=== PATIENT | female | born 2000 | race Caucasian/White ===

== ENCOUNTER 2021-08-16 15:53 | Emergency (ER) | payer MEDICAID, OTHER ==
[~2021-08-16] VITALS: Ht 170.2 cm; Wt 81.6 kg
[2021-08-16 15:54] VITALS: BP 127/71
[2021-08-16] MEDS ORDERED: PENICILLIN G BENZATHINE C-R 1.2 MU/2 ML SYR IM ONE (16:00)
[2021-08-16] MEDS ORDERED: PRED20TA5 PO (16:04)
[2021-08-16] MEDS ORDERED: IBUP-2213 PO (16:04)
[2021-08-16 16:39] VITALS: BP 127/71
--- NOTE | 2021-08-16 16:39 | NUR ---
Patient discharged with v/s stable. Written and verbal after care instructions given. Patient alert, oriented and verbalized understanding of instructions. Ambulatory with steady gait. All questions addressed prior to discharge. ID band removed. Patient advised to follow up with PMD. Rx of Ibuprofen and Prednisone given. Opportunity to ask questions provided and answered.
--- NOTE | 2021-08-16 16:49 | NUR ---
The patient's care was reviewed and supervised by Sherri Bullock RN.
== END 2021-08-16 16:39 | disposition home or self-care (01) ==
LOC: MED 15:53
DX: J02.9 Acute pharyngitis, unspecified (principal)
CPT/HCPCS: 96372; 99283; J0558

== ENCOUNTER 2021-10-25 04:25 | Emergency (ER) | payer OTHER ==
[~2021-10-25] VITALS: Ht 170.2 cm; Wt 83.5 kg
[~2021-10-25 04:25] MED LIST: IBUP-2213 PO; PRED20TA5 PO
--- NOTE | 2021-10-25 04:29 | NUR ---
ERMD examining patient in triage
[2021-10-25 04:30] VITALS: BP 125/73
[2021-10-25] MEDS ORDERED: cefTRIAXone 1,000 MG in LIDOCAINE MPF 1% 2.1 ML IM ONE (04:35)
--- NOTE | 2021-10-25 04:35 | NUR ---
PT AMBULATED TO BED
[2021-10-25] MEDS ORDERED: CEPH-588 PO (04:36)
[2021-10-25] MEDS ORDERED: NAPR-54 PO (04:36)
[2021-10-25] MEDS ORDERED: LIDOCAINE MPF 1% 5 ML ONE (04:40)
[2021-10-25] MEDS ORDERED: cefTRIAXone 1,000 MG VIAL ONE (04:40)
--- NOTE | 2021-10-25 04:55 | NUR ---
21 Y.O. F BIB SELF C/O allergic rx started last night on the right side of the face. NO SOB. CHEST PAIN, OR PAIN. A&OX4, VITALS WNL, SKIN INTACT AND STEADY GAIT. pmh: denies nka
--- NOTE | 2021-10-25 04:59 | NUR ---
Patient discharged with v/s stable. Written and verbal after care instructions given and explained. Patient alert, oriented and verbalized understanding of instructions. Ambulatory with steady gait. All questions addressed prior to discharge. ID band removed. Patient advised to follow up with PMD. Rx of KEFLEX AND NAPROXEN given. Patient educated on indication of medication including possible reaction and side effects. Opportunity to ask questions provided and answered.
[2021-10-25 05:00] VITALS: BP 125/73
== END 2021-10-25 04:43 | disposition home or self-care (01) ==
LOC: MED 04:25
DX: L03.211 Cellulitis of face (principal); Z79.899 Other long term (current) drug therapy
CPT/HCPCS: 96372; 99283; J0696; J2001

== ENCOUNTER 2021-10-28 05:28 | Emergency (ER) | payer SELFPAY ==
[~2021-10-28] VITALS: Ht 170.2 cm; Wt 81.6 kg
[~2021-10-28 05:28] MED LIST changes: +CEPH-588 PO; +NAPR-54 PO
[2021-10-28 05:30] VITALS: BP 124/76
--- NOTE | 2021-10-28 05:30 | NUR ---
to bed ambulatory
--- NOTE | 2021-10-28 06:18 | NUR ---
Dr. Mcfarland examining patient.
[2021-10-28] MEDS ORDERED: DIPH25TA53 PO (06:33)
[2021-10-28] MEDS ORDERED: PRED20TA5 PO (06:33)
[2021-10-28] MEDS ORDERED: SULF-59 PO (06:33)
[2021-10-28 06:42] VITALS: BP 124/76
--- NOTE | 2021-10-28 06:42 | NUR ---
Patient discharged. Written and verbal after care instructions given and explained about cellulitis and rash. Patient alert, oriented and verbalized understanding of instructions. Ambulatory with steady gait. All questions addressed prior to discharge. ID band removed. Patient advised to follow up with PMD. Rx of Benadryl, Deltasone, & Bactrim DS tab given. Provided form for work. Patient educated on indication of medication including possible reaction and side effects. Opportunity to ask questions provided and answered.
== END 2021-10-28 06:42 | disposition home or self-care (01) ==
LOC: MED 05:28
DX: L03.211 Cellulitis of face (principal); R21 Rash and other nonspecific skin eruption; Z79.899 Other long term (current) drug therapy
CPT/HCPCS: 99283

== ENCOUNTER 2023-07-31 22:49 | Emergency (ER) | payer OTHER ==
[~2023-07-31] VITALS: Ht 170.2 cm; Wt 98.4 kg
[~2023-07-31 22:49] MED LIST changes: +DIPH25TA53 PO; +SULF-59 PO
[2023-07-31 23:14] VITALS: BP 123/77; PULSE 77; RESP 18; TEMP 97.8; O2SAT 100
[2023-08-01] MEDS ORDERED: AMOX-1230 PO (01:02)
[2023-08-01] MEDS ORDERED: IBUP-2213 PO (01:02)
== END 2023-08-01 01:17 | disposition home or self-care (01) ==
LOC: MED 22:49
DX: J02.0 Streptococcal pharyngitis (principal); Z79.899 Other long term (current) drug therapy
CPT/HCPCS: 87081; 99283